=== PATIENT | male | born 1960 | race Caucasian/White ===

== ENCOUNTER 2016-04-30 04:59 | Day surgery (SDC) | payer BC ==
[2016-04-23 20:14] LABS: HEMATOCRIT 46.9 % (40.0-51.0)
[2016-04-23 20:27] LABS: CHLORIDE, SERUM 101 MMOL/L (96-112); CO2 (CARBON DIOXIDE) 26 MMOL/L (24-34); CREATININE 1.09 MG/DL (0.70-1.30); GFR AFRICAN AMERICAN 88 ML/MIN (>=60); GFR NON AFRICAN AMERICAN 76 ML/MIN (>=60); POTASSIUM, SERUM 4.5 MMOL/L (3.5-5.3); SODIUM, SERUM 140 MMOL/L (135-148)
[2016-04-23 20:45] LABS: BUN (BLOOD UREA NITROGEN) 10 MG/DL (6-23); CALCIUM, SERUM 9.2 MG/DL (8.5-10.4); GLUCOSE, SERUM 378 MG/DL (60-99)
--- NOTE | ~2016-04-30 | OP ---
Record Of Operation [facility] [address] [place]. [address] NAME: JOSE BRAMBILA : 60 STATUS : ADM IN PAT#: [id number] AGE: 55 ADM/REG DATE : 04/30/16 MR#: [id number] REPORT SERV DATE: 04/30/16 DICTATED BY: PAUL WILSON DATE: 04/30/16 REPORT STATUS : Draft TRANSCRIBED BY: MODL DATE: 04/30/16 DATE OF PROCEDURE: 04/30/2016 PREOPERATIVE DIAGNOSIS: Herniated nucleus polyposis, spinal stenosis, C4-5. POSTOPERATIVE DIAGNOSIS: Herniated nucleus polyposis, spinal stenosis, C4-5. PROCEDURES: 1. Microscopic navigation-assisted surgery. 2. Anterior cervical diskectomy, foraminotomy, C4-5. 3. Anterior interbody fusion with cortical cancellous allograft, C4-5. 4. Anterior interbody instrumentation with Venture plating, C4-5. SURGEON: Paul Wilson D.O. CLAMPER: Jama Payne. ANESTHESIA: General. BLOOD LOSS: 20 mL. INDICATIONS FOR SURGERY: A 55-year-old male, who has had previous anterior cervical diskectomy and fusion, originally many years ago at C5-6, then later he had an adjacent segment degeneration and developed stenosis at C6-7. He underwent surgeries at this level with success and now has developed stenosis and disk degeneration and breakdown at the C4-5 level. On plain x-rays, he had a grade 1 spondylolisthesis and disk degeneration and CT scan and MRI shows some central disk herniation. He is brought to the surgery for the above procedure having failed conservative care. Prior to surgery, risks, benefits, alternatives, and expectations were explained. Consent form was signed. DESCRIPTION OF PROCEDURE: Antibiotic prophylaxis given. Neurophysiology monitoring leads were inserted. The patient was brought to the operative suite. General anesthetic including endotracheal intubation was administered. The patient was in a supine position on fluoroscopic Farzad spine frame. A small bolster was placed behind the shoulders and neck was in a slightly extended position. The scalp was painted with Betadine solution. [place] 3-point fixation was attached to the skull using 60 pounds torque in standard position. [place] was attached to the Farzad bed. The [employer] navigational registration frame was attached to the [place]. The isolation drapes were placed. The neck was scrubbed with Hibiclens solution. DuraPrep was painted. Sterile drapes were applied. Intraoperative CT scan with O-arm was obtained. CT information was used to register the navigational system. With navigational assistance, I identified the C4-5 level. On the left side, a transverse 3 cm Nichols-Gimenez incision was carried out. The platysma was incised in line with the skin incision. The superficial layer of the deep cervical fascia was released along the anterior Record Of Operation [address] [id number] NAME: JOSE BRAMBILA : 60 STATUS : ADM IN PAT#: [id number] AGE: 55 ADM/REG DATE : 04/30/16 MR#: [id number] REPORT SERV DATE: 04/30/16 DICTATED BY: PAUL WILSON DATE: 04/30/16 REPORT STATUS : Draft TRANSCRIBED BY: SILVESTRE DATE: 04/30/16 border of the sternocleidomastoid. Blunt dissection was carried out to the retropharyngeal space where the longus coli muscles were subperiosteally elevated. Retractors were placed. We re-identified the correct level of surgery intraoperatively, the microscope was sterilely draped and used throughout the remainder of the procedure. With navigational assistance, I then placed a [place] distractor pin in the midline of C4 and 5. Initially, we debrided the anterior osteophytes. A diskectomy was carried out with curettes, rongeurs, and as we moved from anterior to posterior, the disk space was widened anteriorly to allow better posterior visualization. Posterior longitudinal ligament was taken down with a 1 mm Kerr[place] rongeur and there was definitely central stenosis and disk herniation. The disk material was also causing medial foraminal stenosis and impingement. After the decompression, the width, depth, and height of the disk space was measured. A cortical cancellous allograft was placed in the interbody space. Traction was released locking the graft in good position. A 21 mm Venture plate was then placed over the mid body of C4 and 5. The four holes were drilled. The locking screws inserted providing rigid stability. Intraoperative AP and lateral x-rays showed good position of all implants. The wound was irrigated. No drain was necessary. After observing carefully, no bleeding, no oozing or anything was noted. The platysma was closed with a 3-0 Vicryl suture. The subcutaneous tissue was closed with 3-0 Vicryl suture and a subcuticular 4-0 PDS was used for skin closure. Sterile dressings were applied. The patient was awakened, extubated, and taken to the recovery room in satisfactory condition having tolerated the procedure well. Sponge, needle, and instrument counts were correct. No intraoperative complications were noted. RILEY/MODAnabella Paul Wilson D.O. / [id number] CC: Lulú Alanis SHIRLEY
[~2016-04-30 04:59] MED LIST: ASA5GR PO; FLOMAX4 PO; GLUCOPHAGE1000 MG PO; LEVEMIR SC; LEVOTHYROXIN150 MCG PO; LIPITOR10 PO; NORCO1 TA2 PO; NORCO1 TAB PO; NORV5 PO; NOVOLOG SC; PR12.5 PO; V5 PO; ZESTORETIC1 TAB PO; ZOCOR20 PO
[2016-04-30 06:50] LABS: BUN (BLOOD UREA NITROGEN) 14 MG/DL (6-23); CHLORIDE, SERUM 107 MMOL/L (96-112); CO2 (CARBON DIOXIDE) 26 MMOL/L (24-34); CREATININE 0.85 MG/DL (0.70-1.30); GFR AFRICAN AMERICAN 114 ML/MIN (>=60); GFR NON AFRICAN AMERICAN 98 ML/MIN (>=60); GLUCOSE, SERUM 137 MG/DL (60-99); POTASSIUM, SERUM 3.5 MMOL/L (3.5-5.3); SODIUM, SERUM 145 MMOL/L (135-148)
== END 2016-04-30 20:37 | disposition home or self-care (01) ==
LOC: SDC 04:59
PROVIDERS: Orthopaedic Surgery Orthopaedic Surgery of the Spine
PROC: 0RG10J0 Fusion of Cervical Vertebral Joint with Synthetic Substitute, Anterior Approach, Anterior Column, Open Approach (ICD-10-PCS; 2016-04-30)
PROC: 0RG10K0 Fusion of Cervical Vertebral Joint with Nonautologous Tissue Substitute, Anterior Approach, Anterior Column, Open Approach (ICD-10-PCS; principal; 2016-04-30 06:45)
PROC: 0RB30ZZ Excision of Cervical Vertebral Disc, Open Approach (ICD-10-PCS; 2016-04-30 06:45)
DX: M50.121 Cervical disc disorder at C4-C5 level with radiculopathy (principal); M48.02 Spinal stenosis, cervical region; E03.9 Hypothyroidism, unspecified; E78.00 Pure hypercholesterolemia, unspecified; I10 Essential (primary) hypertension; J45.909 Unspecified asthma, uncomplicated; E11.9 Type 2 diabetes mellitus without complications; Z87.442 Personal history of urinary calculi; Z88.8 Allergy status to other drugs, medicaments and biological substances; Z79.899 Other long term (current) drug therapy; Z98.890 Other specified postprocedural states
CPT/HCPCS: 36415; 80048; 81001; 82962; 85014; 85018; 87641; 88304; 93005; 94640; A9270-GY; C1713; C1768; J0690; J2250; J2405; J2710; J3010